=== PATIENT | male | born 1980 | race Caucasian/White ===

== ENCOUNTER 2019-05-17 20:53 | Emergency (ER) | payer BC ==
[2019-05-17 21:00] VITALS: TEMP 98.7
--- NOTE | 2019-05-17 22:04 | US ---
EXAMINATION TYPE: US venous doppler duplex LE LT DATE OF EXAM: 05/17/2019 9:49 PM COMPARISON: NONE CLINICAL HISTORY: Pain. Left knee pain SIDE PERFORMED: Left TECHNIQUE: The lower extremity deep venous system is examined utilizing real time linear array sonog pipo with graded compression, doppler sonography and color-flow sonography. VESSELS IMAGED: External Iliac Vein (EIV) Common Femoral Vein Deep Femoral Vein Greater Saphenous Vein * Femoral Vein Popliteal Vein Small Saphenous Vein * Proximal Calf Veins (* superficial vessels) Left Leg: Negative for DVT No evidence of DVT left leg. IMPRESSION: Normal left leg duplex venous sonogram.
--- NOTE | 2019-05-17 22:10 | ED ---
Extremity Problem HPI - General Chief complaint: Extremity Problem,Nontraumatic Stated complaint: Pain behind L knee Time Seen by Provider: 05/17/19 21:04 Source: patient Mode of arrival: ambulatory Limitations: no limitations - History of Present Illness Initial comments: 39-year-old male patient presents to the emergency department today for evaluation of discomfort behind the left knee. Patient states that this started a few days ago. States he has never felt this type of pain before. He denies any swelling to the leg. Denies any redness. States that he does drive one hour to work each way. States that he does sit a lot at work. He denies any new workout regimen. Denies any known injury. Denies any fever or chills. Denies any chest pain or shortness of breath. Patient denies any recent rash, abdominal pain, nausea, vomiting, diarrhea, constipation, back pain, numbness, tingling, dizziness, weakness, hematuria, dysuria, urinary urgency, urinary frequency, headache, visual changes, or any other complaints. - Related Data Home Medications Medication Instructions Recorded Confirmed No Known Home Medications 05/17/19 05/17/19 Allergies Allergy/AdvReac Type Severity Reaction Status Date / Time No Known Allergies Allergy Verified 05/17/19 20:59 Review of Systems ROS Statement: Those systems with pertinent positive or pertinent negative responses have been documented in the HPI. ROS Other: All systems not noted in ROS Statement are negative. Past Medical History Past Medical History: No Reported History History of Any Multi-Drug Resistant Organisms: None Reported Past Surgical History: Orthopedic Surgery Additional Past Surgical History / Comment(s): right thumb, right ACLX2 Past Psychological History: No Psychological Hx Reported Smoking Status: Current every day smoker Past Alcohol Use History: Occasional Past Drug Use History: None Reported General Exam Limitations: no limitations General appearance: alert, in no apparent distress, other (This is a well- developed, well-nourished adult male patient in no acute distress. Vital signs upon presentation are temperature 98.7F, pulse 91, respirations 16, blood pressure 143/92, pulse ox 98% on room air.) Respiratory exam: Present: normal lung sounds bilaterally. Absent: respiratory distress, wheezes, rales, rhonchi, stridor Cardiovascular Exam: Present: regular rate, normal rhythm, normal heart sounds. Absent: systolic murmur, diastolic murmur, rubs, gallop, clicks Extremities exam: Present: normal inspection, full ROM, normal capillary refill, other (Skin to the lower trauma is is pink, warm, dry. Cap refills less than 3 seconds. Pedal pulses are 2+ and equal bilaterally. There is no swelling. No erythema.). Absent: tenderness, pedal edema, joint swelling, calf tenderness Neurological exam: Present: alert, oriented X3, CN II-XII intact Psychiatric exam: Present: normal affect, normal mood Skin exam: Present: warm, dry, intact, normal color. Absent: rash Course Vital Signs 05/17/19 05/17/19 20:56 22:20 Temperature 98.7 F Pulse Rate 91 77 Respiratory 16 19 Rate Blood Pressure 143/92 138/91 O2 Sat by Pulse 98 95 Oximetry Medical Decision Making - Medical Decision Making 39-year-old male patient presented to the emergency department today for evaluation of discomfort behind the left knee. Patient no injury. Physical examination is unremarkable. Ultrasound was obtained and showed no evidence for DVT. Given there is no injury x-rays were not required at this time. Patient be discharged home with Michael wrap in place. He is instructed to follow-up with his primary care physician for recheck in 1-2 days. Return parameters were discussed in detail. He verbalizes understanding and agrees with this plan. - Radiology Data Radiology results: report reviewed Ultrasound venous Doppler duplex of the left lower extremity was obtained. Report was reviewed in its entirety. Impression by Dr. Lowry shows normal left leg duplex venous sonogram. Disposition Clinical Impression: Left knee pain Disposition: HOME SELF-CARE Condition: Good Instructions (If sedation given, give patient instructions): Knee Pain (ED) Additional Instructions: Wear michael wrap for comfort and support. Take tylenol or motrin for pain control. Follow up with primary care physician for recheck as soon as possible. Return to the emergency department for any new, worsening, or concerning symptoms. Is patient prescribed a controlled substance at d/c from ED?: No Referrals: Dipesh Dee MD [Primary Care Provider] - 1-2 days Time of Disposition: 22:10
[2019-05-17 22:21] VITALS: BP 138/91; PULSE 77; RESP 19
== END 2019-05-17 22:19 | disposition home or self-care (01) ==
LOC: EC 20:53
DX: M25.562 Pain in left knee (principal); F17.200 Nicotine dependence, unspecified, uncomplicated
CPT/HCPCS: 99283

== ENCOUNTER 2019-11-03 14:46 | Emergency (ER) | payer BC ==
[2019-11-03] MEDS ORDERED: KETOROLAC 60 MG/2 ML VIAL IM STA (15:20)
--- NOTE | 2019-11-03 15:26 | XR ---
EXAMINATION TYPE: XR hand complete RT DATE OF EXAM: 11/03/2019 COMPARISON: NONE HISTORY: Pain TECHNIQUE: 3 views FINDINGS: Metacarpals are intact. Joint spaces are fairly normal. There are no erosions. Carpal bones are intact. There is minor spurring at the first carpometacarpal joint. The fifth metacarpal appears intact. IMPRESSION: No acute abnormality of the right hand. No fracture.
[2019-11-03] MEDS ORDERED: IBUPROFEN 600 MG STARTER PACK 4 TAB BTL PO STA (15:46)
--- NOTE | 2019-11-03 15:46 | ED ---
General Adult HPI - General Chief complaint: Extremity Injury, Upper Stated complaint: L Hand Pain Time Seen by Provider: 11/03/19 15:05 Source: patient, RN notes reviewed, old records reviewed Mode of arrival: ambulatory Limitations: no limitations - History of Present Illness Initial comments: 39-year-old male patient presents to ED for chief complaint of right hand pain. Patient post this has been causing discomfort for approximately one week has gotten worse the last 2 days. Patient post that he did recently get a new phone which is larger and putting some strain on his pinky. Patient reports that the pain is mostly on the fifth digit and fifth metacarpal region. Patient does report that he wakes up and there is stiffness and pain in this region which last approximately half an hour. Denies any other complaints. Systemic: Pt denies fatigue, fever/chills, rash. Pt denies weakness, night sweats, weight loss. Neuro: Pt denies headache, visual disturbances, syncope or pre-syncope. HEENT: Pt denies ocular discharge or irritation, otalgia, rhinorrhea, pharyngitis or notable lymphadenopathy. Cardiopulmonary: Pt denies chest pain, SOB, heart palpitations, dyspnea on exertion. Abdominal/GI: Pt denies abdominal pain, n/v/d. : Pt denies dysuria, burning w/ urination, frequency/urgency. Denies new onset urinary or bowel incontinence. MSK: Pt denies myalgia, loss of strength or function in extremities. Neuro: Pt denies new onset weakness, paresthesias. - Related Data Home Medications Medication Instructions Recorded Confirmed No Known Home Medications 05/17/19 05/17/19 Allergies Allergy/AdvReac Type Severity Reaction Status Date / Time No Known Allergies Allergy Verified 11/03/19 14:54 Review of Systems ROS Statement: Those systems with pertinent positive or pertinent negative responses have been documented in the HPI. ROS Other: All systems not noted in ROS Statement are negative. Past Medical History Past Medical History: No Reported History History of Any Multi-Drug Resistant Organisms: None Reported Past Surgical History: Orthopedic Surgery Additional Past Surgical History / Comment(s): right thumb, right ACLX2 Past Psychological History: No Psychological Hx Reported Smoking Status: Current every day smoker Past Alcohol Use History: Occasional Past Drug Use History: None Reported General Exam - General Exam Comments Initial Comments: Constitutional: NAD, AOX3, Pt has pleasant affect. HEENT: NC/AT, trachea midline, neck supple, no lymphadenopathy. Posterior pharynx non erythematous, without exudates. External ears appear normal, without discharge. Mucous membranes moist. Eyes PERRLA, EOM intact. There is no scleral icterus. No pallor noted. Cardiopulmonary: RRR, no murmurs, rubs or gallops, no JVD noted. Lungs CTAB in anterior and posterior lorenzana. No peripheral edema. Abdominal exam: Abdomen soft and non-distended. Abdomen non-tender to palpation in all 4 quadrants. Bowel sounds active in LLQ. No hepatosplenomegaly. No ecchymosis Neuro: CN II-XII grossly intact. No nuchal rigidity. No raccon eyes, no akbar sign, no hemotympanum. No cervical spinal tenderness. MSK: Moderate tenderness to fifth metacarpal region of left hand. Full active range of motion, neurovascularly intact. No skin changes. No posterior calf tenderness bilaterally, homans sign negative bilaterally. Posterior tibialis and radial pulse +2 bilaterally. Sensation intact in upper and lower extremities. Full active ROM in upper and lower extremities, 5/5 stregnth. Limitations: no limitations Course Vital Signs 11/03/19 14:49 Temperature 98.4 F Pulse Rate 68 Respiratory 18 Rate Blood Pressure 117/67 O2 Sat by Pulse 95 Oximetry Medical Decision Making - Medical Decision Making 39-year-old male patient presents to ED for chief complaint of right-sided fifth metacarpal pain. Has been ongoing for approximately one week. Patient vital signs are stable, afebrile. Patient does report that he recently got a new phone which is larger any Holter with his hand AND can be causing this discomfort. Patient does also report pain worse in the morning. Physical exam displayed mild tenderness, however no skin changes neurovascularly intact. Full active range of motion. Plain film hand was negative. The splint patient that it is likely that this is caused by the strain from the new phone. However possible rheumatologic causes should be worked up on outpatient basis. Also advised patient to attempt to use neutral splints due to stiffness and morning. Patient will be discharged anti-inflammatories and outpatient primary care follow-up. Will return to ER if condition worsens. Disposition Clinical Impression: Hand pain Disposition: HOME SELF-CARE Condition: Stable Instructions (If sedation given, give patient instructions): Hand Sprain (ED) Additional Instructions: Follow-up with primary care provider on Tuesday. Use ibuprofen as needed for inflammation and pain. Attempt to use neutral splints while sleeping for trial of improvement. If symptoms do not improve recommend outpatient rheumatologic workup by primary care provider. Return to ER if condition worsens. Is patient prescribed a controlled substance at d/c from ED?: No Referrals: Dipesh Dee MD [Primary Care Provider] - 1-2 days
[2019-11-03 16:04] VITALS: BP 138/78; PULSE 78; RESP 16; TEMP 97.8
== END 2019-11-03 16:02 | disposition home or self-care (01) ==
LOC: EC 14:46
DX: M79.641 Pain in right hand (principal); M79.644 Pain in right finger(s); F17.200 Nicotine dependence, unspecified, uncomplicated; Z98.890 Other specified postprocedural states; X50.9XXA Other and unspecified overexertion or strenuous movements or postures, initial encounter
CPT/HCPCS: 73130; 99284; 96372; J1885

== ENCOUNTER 2019-11-04 00:37 | Emergency (ER) | payer BC ==
[2019-11-04 00:44] VITALS: BP 154/99; PULSE 84; RESP 18; TEMP 98
[2019-11-04] MEDS ORDERED: methylPREDNISolone SOD SUCCI 125 MG/2 ML VIAL IM ONE (01:09)
[2019-11-04] MEDS ORDERED: ACET/COD 300 MG/30 MG STARTER PACK 6 TAB BTL PO STA (01:09)
--- NOTE | 2019-11-04 01:20 | ED ---
Extremity Problem HPI - General Chief complaint: Extremity Problem,Nontraumatic Stated complaint: hand swelling/pain Time Seen by Provider: 11/04/19 00:47 Source: patient Mode of arrival: ambulatory Limitations: no limitations - History of Present Illness Initial comments: 39-year-old male patient presents to the emergency department today for evaluation of right hand pain. Patient states his been going on for the last week. States worsening today. He was seen and evaluated here in this emergency department earlier today, had x-rays which were negative. He was given prescription for ibuprofen which she has been taking without relief. Patient states his symptoms seemed to worsen tonight so he represented. He denies any known injury to the hand. Denies numbness or tingling. States he is having pain to the right fifth metatarsal region and to the area between his fourth and fifth digit. He is also reporting swelling and stiffness. Patient denies any headache, neck pain, back pain, chest pain, shortness of breath, dizziness, weakness, abdominal pain, nausea, vomiting, or difficulties with bowel movements or urination. - Related Data Previous Rx's Medication Instructions Recorded predniSONE 50 mg PO DAILY #5 tablet 11/04/19 Allergies Allergy/AdvReac Type Severity Reaction Status Date / Time No Known Allergies Allergy Verified 11/03/19 14:54 Review of Systems ROS Statement: Those systems with pertinent positive or pertinent negative responses have been documented in the HPI. ROS Other: All systems not noted in ROS Statement are negative. Past Medical History Past Medical History: No Reported History History of Any Multi-Drug Resistant Organisms: None Reported Past Surgical History: Orthopedic Surgery Additional Past Surgical History / Comment(s): right thumb, right ACLX2 Past Psychological History: No Psychological Hx Reported Smoking Status: Current every day smoker Past Alcohol Use History: Occasional Past Drug Use History: None Reported General Exam Limitations: no limitations General appearance: alert, in no apparent distress, other (This is a well- developed, well-nourished adult male patient in no acute distress. Vital signs upon presentation are temperature 98.0F, pulse 84, respirations 18, blood pressure 154/99, pulse ox 100% on room air.) Respiratory exam: Present: normal lung sounds bilaterally. Absent: respiratory distress, wheezes, rales, rhonchi, stridor Cardiovascular Exam: Present: regular rate, normal rhythm, normal heart sounds. Absent: systolic murmur, diastolic murmur, rubs, gallop, clicks Extremities exam: Present: full ROM, normal capillary refill, other (There is soft tissue swelling noted over the right hand. Skin is pink, warm, dry. Cap refills less than 3 seconds. Radial pulses 2+ and equal bilaterally). Absent: tenderness, pedal edema, joint swelling, calf tenderness Neurological exam: Present: alert, oriented X3, CN II-XII intact Psychiatric exam: Present: normal affect, normal mood Skin exam: Present: warm, dry, intact, normal color. Absent: rash Course Vital Signs 11/04/19 00:40 Temperature 98.0 F Pulse Rate 84 Respiratory 18 Rate Blood Pressure 154/99 O2 Sat by Pulse 100 Oximetry Medical Decision Making - Medical Decision Making 39-year-old male patient presents to the emergency department today for evaluation of right hand pain and swelling. Physical examination did reveal soft tissue swelling over the right hand. Neurovascular status is intact. Did review x-rays from previous visit which were negative. Did discuss pain management on pharmacologic and pharmacologic with the patient. He does have a splint to use using at home. He'll be given a starter pack for Tylenol codeine. Is instructed follow up with his primary care physician for recheck in 1-2 days. He verbalizes understanding and agrees with this plan. Disposition Clinical Impression: Right hand pain Disposition: HOME SELF-CARE Condition: Good Instructions (If sedation given, give patient instructions): Arthralgia (ED) Additional Instructions: Rest the hand. Take medication as directed. Follow up with your primary care physician for recheck in 1-2 days. Return to the emergency department for any new, worsening, or concerning symptoms. Prescriptions: predniSONE 50 mg PO DAILY #5 tablet Is patient prescribed a controlled substance at d/c from ED?: No Referrals: Dipesh Dee MD [Primary Care Provider] - 1-2 days Time of Disposition: 01:20
== END 2019-11-04 02:22 | disposition home or self-care (01) ==
LOC: EC 00:37
DX: M79.89 Other specified soft tissue disorders (principal); F17.200 Nicotine dependence, unspecified, uncomplicated; Z98.890 Other specified postprocedural states
CPT/HCPCS: 96372; 99283; J2930

== ENCOUNTER → 2019-12-20 | Outpatient (CLI) | payer BC ==
--- NOTE | 2019-12-20 11:56 | CONS ---
CONSULTATION DATE OF SERVICE: 12/20/2019 A 39-year-old gentleman who has been evaluated in Sleep Center for obstructive sleep apnea-hypopnea syndrome and symptoms of excessive daytime sleepiness. HISTORY OF PRESENT ILLNESS/SLEEP-WAKE EVALUATION: Patient has a history of obstructive sleep apnea for about 4-5 years. He is using his CPAP equipment every night, but presently even while using machine feels sleepy during the day. His sleep schedule on working days from 10 p.m. to 5 - 5:15 am, on weekends from 11:30 pm to 7 - 7:30 am. Usually no problems with falling asleep, although he has TV set in bedroom. He sleeps in different positions including back, side and stomach. Usually while using machine, no significant snoring, but he may still wake up to 2 times and in the morning he feels tired, feels sleepiness during the day. [place] Sleepiness Scale increased to 11. He may take one nap on the weekend when he has time to do that. No history of hypnagogic hallucinations, sleep paralysis or cataplexy. I checked patient's CPAP unit. This is Auto PAP machine with range of the pressure 5- 15, usage is 24/30 nights for more than 4 hours which is good compliance. The patient using Dream Wear nasal [id number] mask. PAST MEDICAL HISTORY: Mostly negative. PAST SURGICAL HISTORY: Right ACL surgery and a broken right thumb surgery. MEDICATIONS: Melatonin. SOCIAL HISTORY: Positive for smoking small cigars. Alcohol consumption rarely. FAMILY HISTORY: Basically negative. REVIEW OF SYSTEMS: Occasional awakenings from sleep, sleepiness during the day while using CPAP. During physical exam, gentleman without distress. BP 131/71, HR 68, RR 14, height 6 foot, weight 248 pounds, temperature 98.9, body mass index 33.6, oxygen saturation on room air 96%. OROPHARYNX: Extremely low position of soft palate, Mallampati IV, wide neck 17 inches in circumference, restriction of nasal breathing especially on the left side, possibly nasal septum deviation. LUNGS: Clear to percussion and to auscultation. Good air exchange. No wheezing or rhonchi. HEART: S1, S2 regular. No murmurs, gallops, or rubs. ABDOMEN: Soft and nontender. Bowel sounds are present. No organomegaly appreciated. EXTREMITIES: No clubbing or cyanosis. BOARD MEMBER: Awake, alert, and oriented X3. Cranial nerves 2 to 7 intact. There is no fasciculation or atrophy. noted. No focal deficits observed. IMPRESSION: 1. Obstructive sleep apnea syndrome for more than 4 years. Patient demonstrated great compliance with treatment, but wakes up from sleep and feels sleepy during the day. Extremely low position of soft palate, wide neck. [place] Sleepiness Scale increased to 11, 2. 2. Mild obesity, body mass index 33.6. 3. Some restriction of nasal breathing; possibly nasal septum deviation. 4. Sleepiness during the day while patient demonstrated great compliance with treatment on CPAP. Differential diagnosis include hypersomnia. PLAN: 1. Patient will continue to use CPAP equipment every night for the whole night. 2. We will repeat CPAP titration for evaluation of effective CPAP pressure at the present time with the following multiple sleep latency test for objective evaluation patient has symptoms of excessive daytime sleepiness to rule out hypersomnia. 3. Watching and losing weight. 4. Sleep hygiene with regular time in bed for at least 7-1/2 to 8 hours. 5. Precautions related to driving. No driving if feeling sleepiness. Thank you very much for referring this patient for consultation. Sincerely, MMODL / IJN: [id number] /
== END | disposition home or self-care (01) ==
LOC: SLEEP 10:03
PROVIDERS: ATTEND Internal Medicine
DX: G47.33 Obstructive sleep apnea (adult) (pediatric) (principal); E66.9 Obesity, unspecified; Z68.33 Body mass index [BMI] 33.0-33.9, adult; F17.210 Nicotine dependence, cigarettes, uncomplicated; Z79.899 Other long term (current) drug therapy
CPT/HCPCS: 99211

== ENCOUNTER → 2021-02-18 | Outpatient (CLI) | payer BC ==
--- NOTE | 2021-02-18 13:24 | SFUN ---
SLEEP CENTER FOLLOW UP NOTE DATE OF SERVICE: 02/18/2021 This 41-year-old gentleman has been followed in Sleep Center for treatment of obstructive sleep apnea-hypopnea syndrome and significant excessive daytime sleepiness. Recently, patient had night in sleep center on CPAP. During this night with low CPAP pressure, patient's respiration was normal. Total apnea-hypopnea index for the whole night was only 0.8. Multiple sleep latency test done on the following day consisted from 5 naps. The patient fell asleep on all naps. Mean sleep latency short for only 6.8 minutes. No sleep onset REM periods have been documented. I discussed results of sleep studies with the patient in detail. He continued to feel sleepy during the day. In the morning after he gets up, he may take a nap in the 2 hours. I checked his CPAP unit. Borderline compliance with treatment 20 out of 30 nights for more than 4 hours with average usage 5.06 hours. Apnea-hypopnea index although only 0.8. Leak is 0%. The patient using DreamWear under the nose mask, medium wide, but it irritates skin under the nose. MEDICATIONS: Occasionally, patient takes melatonin. PHYSICAL EXAMINATION: GENERAL: Patient in no distress. VITAL SIGNS: BP 130/73, HR 90, RR 12, height 6 feet 0 inches, weight 234.4, temperature 98.1. Oxygen saturation at room air 97%. BMI 31.7. HEENT: PERRLA, EOMI. Oropharynx extremely low position of soft palate. Mallampati 4. NECK: Supple, no JVD. Thyroid is not palpable. LUNGS: Clear to percussion and to auscultation. Good air exchange. No wheezing or rhonchi. HEART: S1, S2 regular. No murmurs, gallops, or rubs. ABDOMEN: Soft and nontender. Bowel sounds are present. No organomegaly appreciated. EXTREMITIES: No clubbing or cyanosis. SURGICAL TECHNOLOGY INSTRUCTOR: Awake, alert, and oriented X3. Cranial nerves 2 to 7 intact. There is no fasciculation or atrophy. noted. No focal deficits observed. IMPRESSION: 1. History of obstructive sleep apnea-hypopnea syndrome diagnosed in another institution. The patient demonstrated good compliance with treatment, benefitting from treatment. 2. The patient continued to feel sleepiness during the day. Sleepiness confirmed by multiple sleep latency test. Mean sleep latency was 6.8 minutes, which is short. Differential diagnosis includes narcolepsy and idiopathic hypersomnia. No sleep onset REM periods have been documented during the naps, which did not confirm a full diagnosis for narcolepsy. But some study showed that REM sleep may not be present during each multiple sleep latency test for people with narcolepsy so narcolepsy still possible without cataplexy. 3. Mild obesity, body mass index 31.7. PLAN: 1. The patient will be started with the lowest dose of medication to prevent his sleepiness. Adderall 5 mg twice a day, one tablet in the hotel or motel manager and one tablet around 1 p.m. 2. Patient will continue to use his CPAP equipment every night for the whole night. 3. I will try to get results of previous sleep studies related to the diagnosis of obstructive sleep apnea. 4. Watching weight. 5. No driving if feeling sleepiness. Thank you very much for allowing me to participate in management of your patient. Sincerely, Sarjo Becerra MD, PhD, FAASM Diplomat of [employer] [employer] Specialist [facility] [place] MMODL / SHYAM: [id number] /
== END | disposition home or self-care (01) ==

== ENCOUNTER → 2021-07-16 | Outpatient (CLI) | payer BC ==
--- NOTE | 2021-07-17 10:38 | SFUN ---
SLEEP CENTER FOLLOW UP NOTE DATE OF SERVICE: 07/16/2021 This 41-year-old gentleman has been followed in Sleep Center for treatment of obstructive sleep apnea-hypopnea syndrome and possible narcolepsy. Narcolepsy has been confirmed by a multiple sleep latency test. The patient continues treatment with CPAP most of the nights. He is getting his supplies on time. No snoring with the machine. He is also on treatment with Adderall 5 mg twice a day for excessive sleepiness, and with this medication his sleepiness is under control. He feels better. He feels well. [place] Sleepiness Scale today is 10. I checked his CPAP unit. Usage is 14/30 nights. Leak is 0%. Apnea-hypopnea index only 1.6, which is perfect. MEDICATIONS: Adderall 5 mg twice a day. PHYSICAL EXAMINATION: GENERAL: A pleasant patient in no distress. VITAL SIGNS: BP 136/87, HR 88, RR 15, height 6 feet 0 inches, weight 234, body mass index 31.4, temperature 98.6, oxygen saturation at room air 99%. HEENT: PERRLA, EOMI, evaluation of oropharynx showed tongue protrudes midline. Extremely low position of soft palate; Mallampati IV. NECK: Supple, no JVD. Thyroid is not palpable. LUNGS: Clear to percussion and to auscultation. Good air exchange. No wheezing or rhonchi. HEART: S1, S2 regular. No murmurs, gallops, or rubs. ABDOMEN: Soft and nontender. Bowel sounds are present. No organomegaly appreciated. EXTREMITIES: No clubbing or cyanosis. FUR COMBER: Awake, alert, and oriented X3. Cranial nerves 2 to 7 intact. There is no fasciculation or atrophy. noted. No focal deficits observed. IMPRESSION: 1. Obstructive sleep apnea-hypopnea syndrome, under full control with CPAP. Normal respiration on CPAP. 2. Possible narcolepsy by results of MSLT. Mean sleep latency 6.8 minutes, but without sleep-onset REM periods. The patient feels well on Adderall 10 mg a day. 3. Mild obesity; body mass index 31.7. 4. Status post right ACL surgery. 5. Status post right thumb surgery. PLAN: 1. Prescription for Adderall 5 mg twice a day. The patient will continue to take Adderall. I will maintain prescription. No side effects. 2. Patient will continue to use PAP equipment every night for the whole night. 3. Sleep hygiene with regular time in bed for at least 7-1/2 to 8 hours. 4. Precautions related to driving. No driving if feeling sleepiness. 5. I will maintain all necessary prescription for PAP supplies including mask, tube, filters. 6. Watching weight. 7. Follow-up visit in 6 months or earlier if patient has any problems. I spent 30 minutes with the patient and documentation. Thank you very much for allowing me to participate in the management of your patient. Sincerely, Saroj Becerra MD, PhD, FAASM Diplomat of [employer] Sleep Medicine Board of [employer] Communication Consultant of [facility] [place] MMMARYAM / KARIEN: [id number] /
== END ==
LOC: SLEEP 16:11
PROVIDERS: ATTEND Internal Medicine
DX: G47.33 Obstructive sleep apnea (adult) (pediatric) (principal); E66.9 Obesity, unspecified; F17.200 Nicotine dependence, unspecified, uncomplicated; Z68.31 Body mass index [BMI] 31.0-31.9, adult; Z99.89 Dependence on other enabling machines and devices; Z98.890 Other specified postprocedural states

== ENCOUNTER → 2021-12-26 | Outpatient (CLI) | payer BC ==
[2021-12-26 16:20] LABS: HCT 42.2 % (39.6-50.0); HGB 13.4 g/dL (13.0-17.0); MCHC 31.8 g/dL (32.0-37.0); MCV 88.3 fL (80.0-97.0); NRBC Per 100 WBC 0 /100 WBCS (0.0-0.0); Platelet Count 247 X 10*3/uL (140-440); RBC 4.78 X 10*6/uL (4.40-5.60); RDW 13.8 % (11.5-14.5); WBC 7.43 X 10*3/uL (4.50-10.00)
[2021-12-26 16:29] LABS: ALT 31 U/L (10-49); AST 25 U/L (14-35); African American GFR (CKD) 93.4 (60.0-200.0); Albumin/Globulin Ratio 2.06 (1.60-3.17); Alkaline Phosphatase 60 U/L (41-126); BUN/Creat Ratio 11.07 Ratio (12.00-20.00); Blood Urea Nitrogen 12.4 mg/dL (9.0-27.0); Calcium 9.6 mg/dL (8.7-10.3); Carbon Dioxide 24.3 mmol/L (20.0-27.5); Chloride 104 mmol/L (96-109); Chol/HDL Ratio 6.18 Ratio; Globulin 2.4 g/dL (1.6-3.3); Glucose 85 mg/dL (70-110); LDL Cholesterol,Calculated 93.5 mg/dL (0.0-131.0); Non-African American GFR(CKD) 80.6 (60.0-200.0); Potassium 4.2 mmol/L (3.5-5.5); Sodium 140 mmol/L (135-145); Total Protein 7.4 g/dL (6.2-8.2)
== END | disposition home or self-care (01) ==
LOC: LABWHC1 09:14
PROVIDERS: ATTEND Family Medicine
DX: Z00.00 Encounter for general adult medical examination without abnormal findings (principal)
CPT/HCPCS: 36415; 80053; 80061; 85027

== ENCOUNTER → 2022-01-14 | Outpatient (CLI) | payer BC ==
--- NOTE | 2022-01-14 18:39 | SFUN ---
SLEEP CENTER FOLLOW UP NOTE DATE OF SERVICE: 01/14/2022 This 41-year-old gentleman has been followed in Sleep Center for treatment of obstructive sleep apnea-hypopnea syndrome and hypersomnia, possibly related to narcolepsy. The patient is on treatment with Adderall 5 mg twice a day, and with this regimen his sleepiness during the day is under control. [place] Sleepiness Scale today is 9, which is acceptable. The patient continues to use his CPAP equipment every night for the whole night. No problems with the machine. He is getting his supplies on time. The machine is already more than 5 years old, but it is still working well. I checked his CPAP unit. CPAP pressure is 5 cm of water, usage nights for more than 4 hours. Leak is 0%. Apnea-hypopnea index is 0.9, which is in normal range. MEDICATIONS: Adderall 5 mg twice a day. PHYSICAL EXAMINATION: GENERAL: Pleasant patient in no distress. VITAL SIGNS: BP 131/85, HR 69, RR 16, weight 238.4, height 6 feet 0 inches, temperature 97.5, oxygen saturation at room air 99%. HEENT: PERRLA, EOMI, evaluation of oropharynx showed tongue protrudes midline. Extremely low position of soft palate; Mallampati IV. NECK: Supple, no JVD. Thyroid is not palpable. LUNGS: Clear to percussion and to auscultation. Good air exchange. No wheezing or rhonchi. HEART: S1, S2 regular. No murmurs, gallops, or rubs. ABDOMEN: Soft and nontender. Bowel sounds are present. No organomegaly appreciated. EXTREMITIES: No clubbing or cyanosis. [employer] WELL TREATMENT OPERATOR: Awake, alert, and oriented X3. Cranial nerves 2 to 7 intact. There is no fasciculation or atrophy. noted. No focal deficits observed. IMPRESSION: 1. Obstructive sleep apnea-hypopnea syndrome. Patient demonstrated great compliance with treatment. Normal aspiration on CPAP. Benefitting from treatment. 2. Hypersomnia, possibly narcolepsy, confirmed by multiple sleep latency test with mean sleep latency 6.8 minutes, although no sleep-onset REM periods were documented during MSLT; under good control with Adderall 5 mg twice a day. 3. Mild obesity. 4. Status post right ACL surgery. 5. Status post right thumb surgery. PLAN: 1. I showed the patient that his machine could be into two units: One is the CPAP part and the other is the humidifier. 2. I will maintain prescription for Adderall twice a day. I wrote prescription today. 3. Patient will continue to use PAP equipment every night for the whole night. 4. Sleep hygiene with regular time in bed for at least 7-1/2 to 8 hours. 5. Precautions related to driving. No driving if feeling sleepiness. 6. I will maintain all necessary prescription for PAP supplies including mask, tube, filters. 7. Watching weight. 8. Follow-up visit in 6 months or earlier if patient has any problems. Thank you very much for allowing me to participate in the management of your patient. Sincerely, Saroj Becerra MD, PhD, FAASM Diplomat of [place] [employer] Sleep Medicine Board of [place] [employer] of [facility] [place] MMMARYAM / SHYAM: [id number] /
== END ==
LOC: SLEEP 16:54
PROVIDERS: ATTEND Internal Medicine
DX: G47.33 Obstructive sleep apnea (adult) (pediatric) (principal); Z99.89 Dependence on other enabling machines and devices; E66.9 Obesity, unspecified; Z98.890 Other specified postprocedural states; F17.200 Nicotine dependence, unspecified, uncomplicated

== ENCOUNTER → 2022-12-06 | Outpatient (CLI) | payer BC ==
[2022-12-06 17:57] LABS: Basophils % (A) 1 %; Eosinophils # (A) 0.2 k/uL (0-0.7); Eosinophils % (A) 3 %; HCT 37.7 % (39.0-53.0); HGB 12.3 gm/dL (13.0-17.5); Lymphocytes # (A) 2.4 k/uL (1.0-4.8); Lymphocytes % (A) 37 %; MCHC 32.7 g/dL (31.0-37.0); MCV 85.6 fL (80.0-100.0); Mean Platelet Volume 8.5; Monocytes # (A) 0.4 k/uL (0-1.0); Monocytes % (A) 6 %; Neutrophils # (A) 3.3 k/uL (1.3-7.7); Neutrophils % (A) 49 %; Platelet Count 185 k/uL (150-450); RBC 4.41 m/uL (4.30-5.90); RDW 13.4 % (11.5-15.5); WBC 6.6 k/uL (3.8-10.6)
--- NOTE | 2022-12-06 19:32 | CT ---
EXAMINATION TYPE: CT abdomen pelvis w con DATE OF EXAM: 12/06/2022 COMPARISON: None HISTORY: Lower abdomen pain and fever. CT DLP: 1911.4 mGycm Automated exposure control for dose reduction was used. CONTRAST: Performed with IV Contrast, patient injected with 100cc mL of Isovue 300. Images obtained from the diaphragm to the floor the pelvis with IV contrast. There is oral contrast. Lung bases are clear. No pleural effusion. Heart size is normal. No pericardial effusion. spleen stomach pancreas gallbladder appear intact. The bile ducts are not dilated. There is irregula r 4 cm area of increased density in the posterior right lobe of the liver that could be a hemangioma. There is no adrenal mass. Kidneys show satisfactory contrast opacification. No hydronephrosis. Delaye d images show normal renal excretion. Ureters are not dilated. No retroperitoneal adenopathy. No evid ence of thickened appendix. There is apparent short normal appendix. The bladder distends smoothly. No inguinal hernia. No pelvic mass. There is tiny amount of free fluid in the pelvis. There is some fat stranding around the mid sigmoid colon. There are sigmoid diverticula. There is no ascites or free air. No sign of a bowel obstruction. The lumbar vertebrae have normal alignment. There is narrowing of L5-S1 disc space with vacuum disc. The bony pelvis is intact. The hip joints are intact. IMPRESSION: There is sigmoid diverticulitis. There is a short normal appendix. No drainable fluid collection. Hyperdense lesion in the liver is likely a hemangioma.
== END | disposition home or self-care (01) ==
LOC: RADCTMAIN 17:02
PROVIDERS: ATTEND Family Medicine
DX: K35.80 Unspecified acute appendicitis (principal); K57.32 Diverticulitis of large intestine without perforation or abscess without bleeding; K76.9 Liver disease, unspecified; R10.9 Unspecified abdominal pain
CPT/HCPCS: 85025; 74177; 36415; Q9967 ×2

== ENCOUNTER → 2023-12-16 | Outpatient (CLI) | payer BC ==
--- NOTE | 2023-12-18 18:02 | CT ---
EXAMINATION TYPE: CT sinus wo con DATE OF EXAM: 12/16/2023 COMPARISON: None HISTORY: Left nasal blockage x years. CT DLP: 673.7 mGycm CONTRAST: 0 mL of Isovue 300 The paranasal sinuses are examined in the axial plane at 2 mm thick sections. Reconstructed images i n the coronal plane were obtained. There is dental amalgam scatter artifact Mucosal thickening in the right maxillary sinus. There is a retention cyst within the inferior left m axillary sinus. Some mild mucosal thickening in the posterior lateral left maxillary sinus. The ethm oid air cells are clear. The sphenoid sinuses are clear. The frontal sinuses are clear. Mastoid ai r cells are clear. The septum is evaluated. There is septal deviation to the left. The ostiomeatal units are patent. IMPRESSION: 1. Mucosal thickening and retention cysts within the maxillary sinuses. Correlate for chronic sinusi tis. No acute paranasal sinus disease otherwise.
== END | disposition home or self-care (01) ==
LOC: RADCTMAIN 17:09
PROVIDERS: ATTEND Otolaryngology
DX: J34.89 Other specified disorders of nose and nasal sinuses (principal); J34.1 Cyst and mucocele of nose and nasal sinus; J32.0 Chronic maxillary sinusitis
CPT/HCPCS: 70486